=== PATIENT | female | born 1940 | race Caucasian/White ===

== ENCOUNTER → 2017-01-26 | Outpatient (CLI) | payer MEDICARE, OTHER ==
[~2017-01-26] MED LIST: AMLO5 PO; AMOX875 PO; ASCO500 PO; BACL10 PO; CEFD300 PO; CHOL10002 PO; Cipro500 MG PO; DOCU100 PO; DONE10 PO; ESTR2 PO; FISH OIL 1,001000 MG PO; FLUC150A PO; GABA300 PO; GABA400 PO; GAVILAX17 GM PO; IBUP400 PO; IBUP600 PO; Keflex500 MG PO; LAMO100 PO; LAMO25; LAMO25 PO; LEVFLO500 PO; LORA.5 PO; LORA1 PO; Multivitamin1 EAC1 PO; NITR100CA PO; Nortriptyl10 MG/5 ML PO; PROBIOTIC1 EAC1 PO; RAME8 PO; ZIPR20 PO; ZIPR80 PO; ZOLP10 PO; ZOLP6.25 PO
[2017-01-26 13:39] LABS: Source, Urine Clean Catch
[2017-01-26 13:54] LABS: Bacteria Many /hpf; Red Blood Cells, Urine 0-2 /hpf (0-2); Squamous Epithelial Cells Rare /hpf (Few)
== END | disposition home or self-care (01) ==
LOC: LAB EV 13:37
PROVIDERS: Physician Assistant
DX: N39.0 Urinary tract infection, site not specified (principal)
CPT/HCPCS: 81015; 87077; 87086; 87186

== ENCOUNTER → 2017-06-10 | Outpatient (CLI) | payer MEDICARE, OTHER ==
[~2017-06-10] MED LIST changes: -AMLO5 PO; -ASCO500 PO; -CEFD300 PO; -CHOL10002 PO; -DOCU100 PO; -FISH OIL 1,001000 MG PO; -FLUC150A PO; -GAVILAX17 GM PO; -IBUP400 PO; -LORA.5 PO; -Multivitamin1 EAC1 PO; -NITR100CA PO; +NORT10S PO; -Nortriptyl10 MG/5 ML PO; -PROBIOTIC1 EAC1 PO
== END ==
LOC: LAB EV 15:15 → LAB SHORT 15:15
DX: M79.1 Myalgia (principal)
CPT/HCPCS: 82550; 85651; 86140

== ENCOUNTER 2017-08-05 18:13 | Inpatient (IN) | payer MEDICARE, OTHER ==
[~2017-08-05] VITALS: Ht 154.9 cm; Wt 68.9 kg
[2017-08-05 20:02] LABS: BASOPHILS ABSOLUTE AUTO 0.01 K/mm3 (0.00-0.23); BASOPHILS PERCENT AUTO 0 % (0-2); EOSINOPHILS ABSOLUTE AUTO 0.05 K/mm3 (0.00-0.68); EOSINOPHILS PERCENT AUTO 1 % (0-6); Hematocrit 32.4 % (33.0-51.0); Hemoglobin 10.7 g/dL (11.5-16.0); IMMATURE GRAN ABSOLUTE AUTO 0.02 K/mm3 (0.00-0.10); IMMATURE GRAN PERCENT AUTO 0 % (0-1); LYMPHOCYTES ABSOLUTE AUTO 0.63 K/mm3 (0.84-5.20); LYMPHOCYTES PERCENT AUTO 13 % (21-46); MONOCYTES ABSOLUTE AUTO 0.34 K/mm3 (0.16-1.47); MONOCYTES PERCENT AUTO 7 % (4-13); Mean Corpuscular HGB 30.7 pg (26.0-34.0); Mean Corpuscular Volume 93 fL (80-100); Mean Platelet Volume 9.4 fL (9.1-12.4); NEUTROPHILS ABSOLUTE AUTO 4.01 K/mm3 (1.96-9.15); NEUTROPHILS PERCENT AUTO 79 % (41-73); Platelet Count 195 K/mm3 (150-400); RDW Coefficient Variation 13.5 % (11.7-14.2); RDW Standard Deviation 44.2 fL (35.1-46.3); Red Blood Cell Count 3.48 M/mm3 (3.80-5.20); White Blood Cell Count 5.06 K/mm3 (4.00-11.30)
[2017-08-05 20:18] LABS: Albumin, Blood 3.3 g/dL (3.4-5.0); Bilirubin, Total 0.1 mg/dL (0.1-1.0); Bun/Creatinine Ratio 20.3 (12.0-20.0); Calcium, Blood 10.4 mg/dL (8.5-10.1); Creatinine, Blood 1.28 mg/dL (0.40-1.00); Globulin, Blood 3.4 g/dL (2.2-4.0); Potassium, Blood 5.2 mmol/L (3.5-5.5); Total Protein, Blood 6.7 g/dL (6.4-8.2)
[2017-08-05 21:00] LABS: Source, Urine Catheter
[2017-08-05 21:03] LABS: Bilirubin, Urine Neg (Neg); Blood, Urine 5+ (Neg); Glucose Qualitative, Urine Neg (Neg); Ketones, Urine Neg (Neg); Leukocyte Esterase, Urine 3+ (Neg); Nitrite, Urine Neg (Neg); Protein, Urine 2+ (Neg); Urobilinogen, Urine NORM (Normal)
[2017-08-05 21:19] LABS: Free Thyroxine 1.03 ng/dL (0.70-1.60)
[2017-08-05 21:21] LABS: Appearance, Urine Hazy (Clear); Color, Urine Yellow (P-Yellow)
[2017-08-05 21:22] LABS: Red Blood Cells, Urine 25-50 /hpf (0-2); White Blood Cells, Urine 50-100 /hpf (0-5)
[2017-08-05 21:24] LABS: Thyroid Stimulating Hormone 2.55 uIU/mL (0.360-4.800)
[2017-08-05 21:24] LABS: Bacteria Mod /hpf; Squamous Epithelial Cells Not Seen /hpf (Few)
[2017-08-06 00:03] LABS: Bun/Creatinine Ratio 21.5 (12.0-20.0); Calcium, Blood 9.8 mg/dL (8.5-10.1); Creatinine, Blood 1.21 mg/dL (0.40-1.00); Potassium, Blood 5.1 mmol/L (3.5-5.5)
[2017-08-06 04:16] LABS: Hematocrit 30.6 % (33.0-51.0); Hemoglobin 10.1 g/dL (11.5-16.0); Mean Corpuscular HGB 30.7 pg (26.0-34.0); Mean Corpuscular Volume 93 fL (80-100); Mean Platelet Volume 9.3 fL (9.1-12.4); Platelet Count 198 K/mm3 (150-400); RDW Coefficient Variation 13.4 % (11.7-14.2); RDW Standard Deviation 44.4 fL (35.1-46.3); Red Blood Cell Count 3.29 M/mm3 (3.80-5.20); White Blood Cell Count 7.68 K/mm3 (4.00-11.30)
[2017-08-06 04:33] LABS: Bun/Creatinine Ratio 17.8 (12.0-20.0); Calcium, Blood 9.6 mg/dL (8.5-10.1); Creatinine, Blood 1.29 mg/dL (0.40-1.00); Magnesium, Blood 2.3 mg/dL (1.6-2.4); Potassium, Blood 5.4 mmol/L (3.5-5.5)
[2017-08-06] MEDS ORDERED: IBUP400 PO (14:02)
[2017-08-06] MEDS ORDERED: LAMO25 PO (14:05)
[2017-08-06] MEDS ORDERED: RAME8 PO (14:09)
[2017-08-06] MEDS ORDERED: ZOLP6.25 PO (14:10)
[2017-08-06] MEDS ORDERED: LORA.5 PO (14:10)
[2017-08-06] MEDS ORDERED: CHOL10002 PO (14:11)
[2017-08-06] MEDS ORDERED: DOCU100 PO (14:11)
[2017-08-06] MEDS ORDERED: Multivitamin1 EAC1 PO (14:12)
[2017-08-06] MEDS ORDERED: FISH OIL 1,001000 MG PO (14:12)
[2017-08-06] MEDS ORDERED: PROBIOTIC1 EAC1 PO (14:13)
[2017-08-06] MEDS ORDERED: GAVILAX17 GM PO (14:15)
[2017-08-06] MEDS ORDERED: ASCO500 PO (14:15)
[2017-08-08] MEDS ORDERED: CEFD300 PO (15:33)
[2017-08-08] MEDS ORDERED: AMLO5 PO (15:33)
== END 2017-08-08 16:15 | disposition home or self-care (01) | DRG 698 ==
LOC: ER 18:13 → ICUW 22:14 → MEDS 22:57 → ICUW 23:00 → MEDS 08-07 15:10 → ENPENDDIS 08-07 16:13 → MEDS 08-07 21:07 → EDPENDDISTM 08-08 13:40 → EDPENDDISDT 08-08 13:40 → EDPENDDIS 08-08 13:40 → MEDS 08-08 16:15
PROVIDERS: Emergency Medicine; Nurse Practitioner Acute Care
DX: T83.511A Infection and inflammatory reaction due to indwelling urethral catheter, initial encounter (principal); G93.41 Metabolic encephalopathy; J96.01 Acute respiratory failure with hypoxia; G82.50 Quadriplegia, unspecified; N17.9 Acute kidney failure, unspecified; N39.0 Urinary tract infection, site not specified; T68.XXXA Hypothermia, initial encounter; R00.1 Bradycardia, unspecified; F31.9 Bipolar disorder, unspecified; I10 Essential (primary) hypertension; D63.8 Anemia in other chronic diseases classified elsewhere; K21.9 Gastro-esophageal reflux disease without esophagitis
CPT/HCPCS: 36415; 51102; 51702; 71045; 80048; 80053; 81001; 82550; 83605; 83735; 83880; 84439; 84443; 85025; 85027; 87040; 87077; 87086; 87186; 93005; 93010; 94640; 94761; 96361; 96374; 99285; C2627; J0360; J0696; J1650; J1940; J7030; J7120

== ENCOUNTER 2017-09-02 05:55 | Emergency (ER) | payer MEDICARE, OTHER ==
[~2017-09-02] VITALS: Ht 154.9 cm; Wt 61.2 kg
[~2017-09-02 05:55] MED LIST changes: +AMLO5 PO; +ASCO500 PO; +CEFD300 PO; +CHOL10002 PO; +DOCU100 PO; +FISH OIL 1,001000 MG PO; +GAVILAX17 GM PO; +IBUP400 PO; +LORA.5 PO; +Multivitamin1 EAC1 PO; +PROBIOTIC1 EAC1 PO
[2017-09-02 07:28] LABS: BASOPHILS ABSOLUTE AUTO 0.03 K/mm3 (0.00-0.23); BASOPHILS PERCENT AUTO 1 % (0-2); EOSINOPHILS ABSOLUTE AUTO 0.09 K/mm3 (0.00-0.68); EOSINOPHILS PERCENT AUTO 1 % (0-6); Hematocrit 37.3 % (33.0-51.0); Hemoglobin 11.8 g/dL (11.5-16.0); IMMATURE GRAN ABSOLUTE AUTO 0.01 K/mm3 (0.00-0.10); IMMATURE GRAN PERCENT AUTO 0 % (0-1); LYMPHOCYTES ABSOLUTE AUTO 1.08 K/mm3 (0.84-5.20); LYMPHOCYTES PERCENT AUTO 17 % (21-46); MONOCYTES ABSOLUTE AUTO 0.49 K/mm3 (0.16-1.47); MONOCYTES PERCENT AUTO 8 % (4-13); Mean Corpuscular HGB 30.1 pg (26.0-34.0); Mean Corpuscular HGB Conc 31.6 g/dL (31.5-36.5); Mean Corpuscular Volume 95 fL (80-100); Mean Platelet Volume 9.3 fL (9.1-12.4); NEUTROPHILS ABSOLUTE AUTO 4.67 K/mm3 (1.96-9.15); NEUTROPHILS PERCENT AUTO 73 % (41-73); Platelet Count 200 K/mm3 (150-400); RDW Standard Deviation 47.8 fL (35.1-46.3); Red Blood Cell Count 3.92 M/mm3 (3.80-5.20); White Blood Cell Count 6.37 K/mm3 (4.00-11.30)
[2017-09-02 07:44] LABS: Anion Gap 7 mmol/L (6-16); Blood Urea Nitrogen 19 mg/dL (8-24); Bun/Creatinine Ratio 27.2 (12.0-20.0); CO2, Blood 33 mmol/L (21-32); Calcium, Blood 10.2 mg/dL (8.5-10.1); Chloride, Blood 104 mmol/L (98-108); Glomerular Filtration Rate >60 (60-); Glucose, Blood 87 mg/dL (70-99); Potassium, Blood 4.7 mmol/L (3.5-5.5); Sodium, Blood 144 mmol/L (136-145)
[2017-09-02 08:03] LABS: Source, Urine Catheter
[2017-09-02 08:16] LABS: Bilirubin, Urine Neg (Neg); Blood, Urine 5+ (Neg); Glucose Qualitative, Urine Neg (Neg); Ketones, Urine Neg (Neg); Leukocyte Esterase, Urine 2+ (Neg); Nitrite, Urine Pos (Neg); Protein, Urine 1+ (Neg); Urobilinogen, Urine NORM (Normal)
[2017-09-02 08:17] LABS: Appearance, Urine Cloudy (Clear); Color, Urine Pale Yellow (P-Yellow)
[2017-09-02 08:27] LABS: Red Blood Cells, Urine 50-100 /hpf (0-2)
[2017-09-02 08:29] LABS: Amorphous Light (0-Heavy); Bacteria Few /hpf; Squamous Epithelial Cells Rare /hpf (Few)
[2017-09-02] MEDS ORDERED: LEVFLO500 PO (08:57)
== END 2017-09-02 10:50 | disposition home or self-care (01) ==
LOC: ER 05:55
PROVIDERS: Emergency Medicine
DX: N39.0 Urinary tract infection, site not specified (principal); E86.0 Dehydration; G82.50 Quadriplegia, unspecified; F31.9 Bipolar disorder, unspecified; Z91.012 Allergy to eggs; Z88.5 Allergy status to narcotic agent; Z88.1 Allergy status to other antibiotic agents; Z88.8 Allergy status to other drugs, medicaments and biological substances; Z88.2 Allergy status to sulfonamides; Z79.899 Other long term (current) drug therapy
CPT/HCPCS: 36415; 51705; 71045; 80048; 81001; 83605; 85025; 87077; 87086; 87186; 96365; 99285; C2627; J1956; J7030

== ENCOUNTER 2017-09-07 22:01 | Inpatient (IN) | payer MEDICARE, OTHER ==
[~2017-09-07] VITALS: Ht 154.9 cm; Wt 66.8 kg
[~2017-09-07 22:01] MED LIST changes: -NORT10S PO; +Nortriptyl10 MG/5 ML PO
[2017-09-07] MEDS ORDERED: NITR100CA PO (23:46)
[2017-09-08 01:35] LABS: PCO2 Arterial 62.2 mmHg (35-45); PO2 Arterial 95.8 mmHg (80-100); pH Blood Arterial 7.33 (7.35-7.45)
[2017-09-08 01:47] LABS: BASOPHILS ABSOLUTE AUTO 0.02 K/mm3 (0.00-0.23); BASOPHILS PERCENT AUTO 0 % (0-2); EOSINOPHILS ABSOLUTE AUTO 0.25 K/mm3 (0.00-0.68); EOSINOPHILS PERCENT AUTO 2 % (0-6); Hematocrit 35.1 % (33.0-51.0); Hemoglobin 11.3 g/dL (11.5-16.0); IMMATURE GRAN PERCENT AUTO 1 % (0-1); LYMPHOCYTES ABSOLUTE AUTO 0.71 K/mm3 (0.84-5.20); LYMPHOCYTES PERCENT AUTO 7 % (21-46); MONOCYTES ABSOLUTE AUTO 0.74 K/mm3 (0.16-1.47); MONOCYTES PERCENT AUTO 7 % (4-13); Mean Corpuscular HGB 30.3 pg (26.0-34.0); Mean Corpuscular HGB Conc 32.2 g/dL (31.5-36.5); Mean Corpuscular Volume 94 fL (80-100); Mean Platelet Volume 9.6 fL (9.1-12.4); NEUTROPHILS ABSOLUTE AUTO 8.48 K/mm3 (1.96-9.15); NEUTROPHILS PERCENT AUTO 82 % (41-73); Platelet Count 137 K/mm3 (150-400); RDW Coefficient Variation 14.5 % (11.7-14.2); RDW Standard Deviation 48.7 fL (35.1-46.3); Red Blood Cell Count 3.73 M/mm3 (3.80-5.20)
[2017-09-08 01:49] LABS: Alanine Aminotransfer (ALT/SGP 155 U/L (12-78); Albumin, Blood 3.2 g/dL (3.4-5.0); Albumin/Globulin Ratio 0.9 (0.8-1.8); Alk Phos 308 U/L (50-136); Anion Gap 6 mmol/L (6-16); Aspartate Aminotrans (AST/SGOT 146 U/L (12-37); Bilirubin, Total 3.1 mg/dL (0.1-1.0); Blood Urea Nitrogen 15 mg/dL (8-24); Bun/Creatinine Ratio 17.9 (12.0-20.0); CO2, Blood 32 mmol/L (21-32); Calcium, Blood 9.3 mg/dL (8.5-10.1); Chloride, Blood 102 mmol/L (98-108); Creatinine, Blood 0.84 mg/dL (0.40-1.00); Globulin, Blood 3.5 g/dL (2.2-4.0); Glomerular Filtration Rate >60 (60-); Glucose, Blood 90 mg/dL (70-99); Magnesium, Blood 2.2 mg/dL (1.6-2.4); Potassium, Blood 4.8 mmol/L (3.5-5.5); Sodium, Blood 140 mmol/L (136-145); Total Protein, Blood 6.7 g/dL (6.4-8.2); Troponin I <0.015 ng/mL (0.000-0.040)
[2017-09-08 03:14] LABS: Source, Urine Catheter
[2017-09-08 03:20] LABS: Blood, Urine 1+ (Neg); Glucose Qualitative, Urine Neg (Neg); Ketones, Urine 3+ (Neg); Leukocyte Esterase, Urine 3+ (Neg); Nitrite, Urine Neg (Neg); Protein, Urine 1+ (Neg); Urobilinogen, Urine 1+ (Normal)
[2017-09-08 03:25] LABS: Bilirubin, Urine 2+ (Neg)
[2017-09-08 03:26] LABS: Appearance, Urine Clear (Clear); Color, Urine Yellow (P-Yellow)
[2017-09-08 03:27] LABS: Amorphous Light (0-Heavy); Bacteria Mod /hpf; Calcium Oxalate Crystals Few /hpf; Red Blood Cells, Urine 0-2 /hpf (0-2); Squamous Epithelial Cells Not Seen /hpf (Few)
[2017-09-08 06:34] LABS: Source, Urine Catheter
[2017-09-08 06:38] LABS: Bilirubin, Urine Neg (Neg); Blood, Urine 1+ (Neg); Glucose Qualitative, Urine Neg (Neg); Ketones, Urine 2+ (Neg); Leukocyte Esterase, Urine 3+ (Neg); Nitrite, Urine Neg (Neg); Protein, Urine Neg (Neg); Urobilinogen, Urine NORM (Normal)
[2017-09-08 06:48] LABS: Appearance, Urine Clear (Clear); Color, Urine Yellow (P-Yellow)
[2017-09-08 07:01] LABS: Bacteria Few /hpf; Squamous Epithelial Cells Rare /hpf (Few); Yeast/Fungi Urine Many /hpf
[2017-09-08 07:02] LABS: Calcium Oxalate Crystals Few /hpf
[2017-09-08 07:06] LABS: U Amphetamine Screen Not Detected; U Barbituate Screen Not Detected; U Benzodiazapine Screen DETECTED; U Cannabinoids Screen Not Detected; U Cocaine Screen Not Detected; U Methadone Screen Not Detected; U Methamphetamine Screen Not Detected; U Opiates Screen Not Detected; U Phencyclidine Screen Not Detected
[2017-09-08 07:07] LABS: U Buprenorphine Screen Not Detected; U Oxycodone Screen Not Detected; U Propoxyphene Screen Not Detected
[2017-09-09 04:44] LABS: Hemoglobin 11.1 g/dL (11.5-16.0); Mean Corpuscular HGB 29.8 pg (26.0-34.0); Mean Corpuscular HGB Conc 31.7 g/dL (31.5-36.5); Mean Corpuscular Volume 94 fL (80-100); Mean Platelet Volume 9.4 fL (9.1-12.4); NRBC ABSOLUTE 0.02 K/mm3 (0.00-0.02); NRBC Auto 0.2 /100 WBC (0.0-0.2); Platelet Count 121 K/mm3 (150-400); RDW Coefficient Variation 14.2 % (11.7-14.2); RDW Standard Deviation 48.5 fL (35.1-46.3); Red Blood Cell Count 3.73 M/mm3 (3.80-5.20); White Blood Cell Count 9.55 K/mm3 (4.00-11.30)
[2017-09-09 05:13] LABS: Anion Gap 12 mmol/L (6-16); Blood Urea Nitrogen 13 mg/dL (8-24); CO2, Blood 25 mmol/L (21-32); Calcium, Blood 8.7 mg/dL (8.5-10.1); Chloride, Blood 103 mmol/L (98-108); Creatinine, Blood 0.54 mg/dL (0.40-1.00); Glomerular Filtration Rate >60 (60-); Glucose, Blood 65 mg/dL (70-99); Phosphorus, Blood 1.8 mg/dL (2.5-4.9); Potassium, Blood 4.3 mmol/L (3.5-5.5); Sodium, Blood 140 mmol/L (136-145)
[2017-09-09 05:14] LABS: Alanine Aminotransfer (ALT/SGP 117 U/L (12-78); Albumin/Globulin Ratio 0.8 (0.8-1.8); Alk Phos 318 U/L (50-136); Anion Gap 12 mmol/L (6-16); Aspartate Aminotrans (AST/SGOT 99 U/L (12-37); Blood Urea Nitrogen 14 mg/dL (8-24); Bun/Creatinine Ratio 26.1 (12.0-20.0); CO2, Blood 25 mmol/L (21-32); Calcium, Blood 8.8 mg/dL (8.5-10.1); Chloride, Blood 103 mmol/L (98-108); Creatinine, Blood 0.54 mg/dL (0.40-1.00); Globulin, Blood 3.7 g/dL (2.2-4.0); Glomerular Filtration Rate >60 (60-); Glucose, Blood 64 mg/dL (70-99); Potassium, Blood 4.2 mmol/L (3.5-5.5); Sodium, Blood 140 mmol/L (136-145); Total Protein, Blood 6.7 g/dL (6.4-8.2)
[2017-09-11] MEDS ORDERED: ZIPR20 PO (16:10)
[2017-09-11] MEDS ORDERED: LAMO25 PO (16:11)
[2017-09-11] MEDS ORDERED: LAMO100 PO (16:12)
[2017-09-11] MEDS ORDERED: LORA.5 PO (16:15)
[2017-09-12] MEDS ORDERED: AMLO5 PO (14:26)
[2017-09-12] MEDS ORDERED: FLUC150A PO (14:27)
== END 2017-09-12 15:53 | disposition home health service (06) | DRG 698 ==
LOC: ER 22:01 → PCU 22:02 → MEDS 09-11 18:41 → ENPENDDIS 09-12 12:29 → MEDS 09-12 15:53
PROVIDERS: Emergency Medicine; Internal Medicine
PROC: 0T2BX0Z Change Drainage Device in Bladder, External Approach (ICD-10-PCS; principal; 2017-09-10)
DX: T83.510A Infection and inflammatory reaction due to cystostomy catheter, initial encounter (principal); G92 Toxic encephalopathy; G82.50 Quadriplegia, unspecified; B37.49 Other urogenital candidiasis; E87.2 Acidosis; E86.0 Dehydration; S14.105S Unspecified injury at C5 level of cervical spinal cord, sequela; Z93.50 Unspecified cystostomy status; Z66 Do not resuscitate; R53.81 Other malaise; I10 Essential (primary) hypertension; F31.9 Bipolar disorder, unspecified; F41.9 Anxiety disorder, unspecified; Z79.899 Other long term (current) drug therapy; Z87.440 Personal history of urinary (tract) infections; Y84.6 Urinary catheterization as the cause of abnormal reaction of the patient, or of later complication, without mention of misadventure at the time of the procedure; T42.4X5A Adverse effect of benzodiazepines, initial encounter; Y92.009 Unspecified place in unspecified non-institutional (private) residence as the place of occurrence of the external cause
CPT/HCPCS: 36415; 36600; 70450; 71045; 80053; 80069; 81001; 82140; 82803; 82947; 83605; 83735; 84145; 84484; 85025; 85027; 87040; 87086; 87106; 92526; 92610; 93005; 93010; 96365; 96375; 96376; 97110; 97162; 97165; 97530; 99285-25; G0378; G8978; G8979; G8987; G8988; G8996; G8997; J1650; J2310; J2405; J3370; J7030

== ENCOUNTER → 2018-03-18 | Outpatient (CLI) | payer MEDICARE, OTHER ==
[~2018-03-18] MED LIST changes: +FLUC150A PO; +NITR100CA PO
[2018-03-18 16:21] LABS: Bilirubin, Urine Neg (Neg); Blood, Urine 3+ (Neg); Glucose Qualitative, Urine Neg (Neg); Ketones, Urine Neg (Neg); Leukocyte Esterase, Urine 3+ (Neg); Nitrite, Urine Neg (Neg); Protein, Urine 2+ (Neg); Urobilinogen, Urine NORM (Normal)
[2018-03-18 16:46] LABS: Appearance, Urine Clear (Clear); Color, Urine Yellow (P-Yellow)
[2018-03-18 16:49] LABS: White Blood Cells, Urine 25-50 /hpf (0-5)
[2018-03-18 16:50] LABS: Bacteria Mod /hpf; Squamous Epithelial Cells Few /hpf (Few)
== END | disposition home or self-care (01) ==
LOC: LAB HH 14:00
PROVIDERS: Family Medicine
DX: Z43.5 Encounter for attention to cystostomy (principal)
CPT/HCPCS: 81001; 87086